=== PATIENT | male | born 1975 | race Caucasian/White ===

== ENCOUNTER 2018-01-16 14:16 | Emergency (ER) | payer MEDICAID, OTHER ==
[2018-01-16] MEDS ORDERED: ONDANSETRON 4 MG INJ IV (16:36)
[2018-01-16] MEDS ORDERED: SOD CHLORIDE 0.9% 1,000 ML IV (16:36)
== END 2018-01-16 16:45 | disposition left against medical advice (07) ==
LOC: E/R 14:16
DX: R42 Dizziness and giddiness (principal); R51 Headache; R40.2142 Coma scale, eyes open, spontaneous, at arrival to emergency department; R40.2252 Coma scale, best verbal response, oriented, at arrival to emergency department; R40.2362 Coma scale, best motor response, obeys commands, at arrival to emergency department
CPT/HCPCS: 93005; 99283